=== PATIENT | male | born 1970 | race African-American/Black ===

== ENCOUNTER 2022-11-14 19:18 | Emergency (ER) | payer MEDICAID, OTHER ==
[~2022-11-14] VITALS: Ht 188 cm; Wt 100.0 kg
[~2022-11-14 19:18] MED LIST: CEPH-569 PO; SULF1TAB48 PO
[2022-11-14 19:24] VITALS: BP 158/104
[2022-11-14] MEDS ORDERED: ACETAMINOPHEN 325MG TABLET PO ONE (19:45)
[2022-11-14 20:10] LABS: BASOPHILS % 0.5 % (0.0-2.0); HEMATOCRIT. 38.6 % (42.0-52.0); HEMOGLOBIN. 12.6 g/dL (14.0-18.0); LYMPHOCYTES % 9.2 % (20.0-50.0); MEAN CORPUSCULAR HEMOGLOBIN 27.7 pg (28.0-32.0); MEAN CORPUSCULAR VOLUME 84.9 fL (80.0-94.0); MEAN PLATELET VOLUME 7.3 fl (7.4-10.4); MONOCYTES % 7.6 % (2.0-8.0); NEUTROPHILS % 78.7 % (40.0-76.0); PLATELET 272 x1000/uL (130-400); RED BLOOD CELL COUNT 4.54 mill/uL (4.7-6.1); RED CELL DISTRIBUTION WIDTH 14.7 % (11.6-14.6)
[2022-11-14 20:28] LABS: CHLORIDE 100 mEq/L (98-107)
[2022-11-14] MEDS ORDERED: KETOROLAC 60MG/2ML VIAL IM ONE (21:00)
[2022-11-14] MEDS ORDERED: ACET-2708 MT (22:44)
== END 2022-11-14 23:16 | disposition home or self-care (01) ==
LOC: ER 19:18
DX: R51.9 Headache, unspecified (principal)
CPT/HCPCS: 36415; 70450; 80053; 83605; 85025; 87040; 96372; 99285; J1885; Z7610